=== PATIENT | female | born 1960 | race Caucasian/White ===

== ENCOUNTER 2023-12-08 14:07 | Emergency (ER) | payer OTHER, SELFPAY ==
--- OUTSIDE RECORDS SUMMARY | 2023-12-08 14:10 | XMS REPORT | Continuity of Care Document ---
Author Name Unknown Address [address] [place] [address] [employer] Address [address] [place] [address] [address] [place] [address] Care Team Providers Care Focuser Name Role Phone GABRIEL BURCH Attending Clinician Unavaila ble Results Test Description Test Time Test Comments Results Resul t Comments Source CT ABDOMEN/PELVIS W 2017-08-21 17:42:00 [place] [id number] Patient Name: NEHEMIAS COLVIN MR #: [id number] : 1960 Age/Sex: 56/F Req #: [id number] Adm Physician: Ordered by: GABRIEL BURCH Report #: [id number] Location: CT Room/Bed: Procedure: [id number] CT/CT ABDOMEN/PELVIS W Exam Date: 08/21/17 Exam Time: 1640 REPORT STATUS: Signed PROCEDURE: CT ABDOMEN AND PELVIS WITH CONTRAST TECHNIQUE: The abdomen and pelvis were scanned utilizing a multidetector helical scanner from the diaphragm to the lesser trochanter after the IV administration of 100 cc of Isovue 370 and the oral administration of water. Coronal and sagittal multiplanar reformations were obtained. COMPARISON: None. INDICATIONS: DIFFUSED ABDOMINAL PAIN FINDINGS: LOWER THORAX: Lung bases are grossly clear. HEPATOBILIARY: Hepatic steatosis, predominantly involving the right hepatic lobe. No focal lesions. Normal size and contour. No biliary ductal dilation. 1.7 cm peripherally calcified gallstone in the gallbladder lumen. No wall thickening or pericholecystic fluid. SPLEEN: No splenomegaly. PANCREAS: No focal masses or ductal dilatation. 3.0 x 1.7 cm oval-shaped structure with air-fluid level between the proximal third portion of the duodenum and the pancreatic head, consistent with a duodenal diverticulum (series 2, image 37).. ADRENALS: No adrenal nodules. KIDNEYS/URETERS: No hydronephrosis, stones, or solid mass lesions. PELVIC ORGANS/BLADDER: Bladder and uterus are unremarkable. 3.3 x 3.4 cm fluid density lesion in the right ovary, likely representing a small simple cyst. PERITONEUM / RETROPERITONEUM: No free air or fluid LYMPH NODES: No lymphadenopathy. VESSELS: Celiac trunk, superior and inferior mesenteric, and bilateral renal arteries are patent. Portal, superior mesenteric, and splenic veins are patent. Incidental note is made of a left circumaortic renal vein. Atherosclerotic calcification of the distal abdominal aorta and proximal iliac vessels. GI TRACT: No bowel dilation or evidence of obstruction. No pericolonic inflammatory changes. BONES AND SOFT TISSUES: No aggressive lytic lesions. Degenerative disc changes in the lumbosacral spine, predominantly at L2-L3, L4-L5, and L5-S1. Minimal grade 1 anterolisthesis of L5 on S1. Facet hypertrophy. L4-L5 and L5-S1. Soft tissues are grossly unremarkable. IMPRESSION: 1. No acute abdominopelvic abnormalities. Bowel is unremarkable. 2. Hepatic steatosis, dominantly involving the right hepatic lobe. 3. Cholelithiasis, without CT evidence of cholecystitis. 4. 3.4 cm fluid density lesion in the right ovary, likely representing a small simple cyst. Oskar Field M.D. Dictated by: Oskar Field M.D. on 08/21/2017 at 17:42 Electronically approved by: Oskar Field M.D. on 08/21/2017 at 17:42 Dictated By: OSKAR FIELD MD 41 Transcribed By: VERNELL on 08/21/171741 COPY TO: GABRIEL BURCH
[2023-12-08 15:28] LABS: Calcium Oxalate Crystals- Ur Few /HPF (None Seen); Sqamous Epithelial <5 /HPF (None Seen); Urine Bacteria None Seen /HPF (<20); Urine Bilirubin NEGATIVE (Negative); Urine Blood 3+ (OVER) (Negative); Urine Clarity Extremely Turbid (Clear); Urine Color Yellow (Yellow); Urine Culture Reflex Order NOT NEEDED; Urine Glucose NEGATIVE (Negative); Urine Ketones TRACE (Negative); Urine Microscopic Reflex YN ORDER UMIC; Urine Nitrite NEGATIVE (Negative); Urine Protein 1+ (Negative); Urine RBC >50 /HPF (None Seen); Urine Urobilinogen Normal (Normal)
--- NOTE | 2023-12-08 16:03 | RAD REPORT ---
EXAMINATION: Transvaginal Study Probe CLINICAL INDICATION: Female 63 years old.[facility] 17 years ago VAGINAL BLEEDING Bed Name: 8 TECHNIQUE: Real-time ultrasonography of the pelvis was performed transvaginally. Color and spectral D oppler evaluation of the ovaries was performed. COMPARISON: No prior exam. FINDINGS: UTERUS AND CERVIX: The uterus measures 8.8 cm in length. The uterus shows bulky appearance at the fun dus. Ill-defined areas of heterogeneous hypoechogenicity near the fundus, with some peripheral mineralization/ossifications, largest measuring up to 3 cm. The endometrium is poorly defined but sanna ears thickened. Small nabothian cyst at the cervix RIGHT OVARY: Normal The right ovary measures 1.7 x 2.3 x 2.1 cm. Dominant anechoic cyst/follicle occu pying most of the right ovary. Normal color and spectral Doppler evaluation of the right ovary.. LEFT OVARY: Normal The left ovary measures 2.2 x 1.2 x 1.7 cm. Normal color and spectral Doppler evaluation of the left ovary.. FREE FLUID: No free fluid. IMPRESSION: Bulky appearance at the fundus with heterogeneous fundal masses, may represent fibroids, or be relate d to an irregular endometrial mass, as the endometrium is poorly defined. Additional evaluation by contrast-enhanced MRI of the pelvis would be helpful for further characterization. Simple appearing cyst of the right ovary measuring up to 2.3 cm.
--- NOTE | 2023-12-08 16:11 | EDPHYS ---
Physician Documentation [facility] Name: Leanna Wilkinson Age: 63 yrs Sex: Female : 1960 Arrival Date: 12/08/2023 Time: 14:07 Bed 20 Private MD: ED Physician Suhas Love HPI: 12/07 14:15 This 63 yrs old Female presents to ER via Unassigned with complaints of Vaginal kb Bleeding. 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 States she has had 4-5 episodes of spotting since July, but today the bleeding was heavier with clots. States she went through Menopause at age 46 and hasn't had vaginal bleeding since then until July. Denies pain. Historical: - Allergies: 14:22 Codeine; hb - Immunization history:: Adult Immunizations up to date. - Infectious Disease History:: Denies. - Social history:: Smoking status: Patient denies any tobacco usage or history of. ROS: 14:15 Constitutional: As per HPI kb Exam: 14:15 Constitutional: This is a well developed, well nourished patient who is awake, alert, kb and in no acute distress. Head/Face: Normocephalic, atraumatic. ENT: Moist Mucous membranes Cardiovascular: Regular rate Respiratory: Respirations even and unlabored. No increased work of breathing. Talking in full sentences Abdomen/GI: Soft, non-tender. No distention Skin: Warm, dry with normal turgor. Normal color. MS/ Extremity: Pulses equal, no cyanosis. Neurovascular intact. Full, normal range of motion. Neuro: Awake and alert, GCS 15, oriented to person, place, time, and situation. Moves all extremities. Normal gait. Vital Signs: 14:21 BP 189 / 95; Pulse 88; Resp 16; Temp 97.4(TE); Pulse Ox 100% on R/A; Pain 0/10; hb 15:36 BP 139 / 78; Pulse 85; Pulse Ox 95% on R/A; MAP 95 mmHg; Pain 1/10; tm6 14:21 Pain Scale: Adult hb 15:36 Pain Scale: Adult tm6 MDM: 14:14 Patient medically screened. kb 14:18 Data reviewed: vital signs, nurses notes. kb 14:20 Differential diagnosis: malignancy, uterine fibroids. kb 16:09 Counseling: I had a detailed discussion with the patient and/or guardian regarding the kb historical points, exam findings, and any diagnostic results supporting the discharge/admit diagnosis, lab results, radiology results, the need for outpatient follow up, an OB/Gyne specialist, to return to the emergency department if symptoms worsen or persist or if there are any questions or concerns that arise at home. ED course: Pt educated on importance of follow up with [employer] for endometrial biopsy due to post menopausal bleeding. Verbal understanding received. Printed US report given. . 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 12/07 14:18 Order name: Urinalysis w/ reflexes; Complete Time: 15:29 kb 12/07 14:18 Order name: US Transvaginal Study (Probe); Complete Time: 16:06 kb Administered Medications: No medications were administered Disposition: 14:28 Co-signature as Attending Physician, Suhas Love DO I was immediately available on-site ms3 in the Emergency Department for consultation in the care of the patient. Disposition Summary: 12/08/23 16:10 Discharge Ordered Notes: Location: Home kb Condition: Stable kb Diagnosis - Abnormal uterine and vaginal bleeding, unspecified kb Followup: kb - With: Emergency Department - When: As needed - Reason: Worsening of condition Followup: kb - With: Private Physician - When: 2 - 3 days - Reason: Recheck today's complaints, Continuance of care, Re-evaluation by your physician Discharge Instructions: - Discharge Summary Sheet kb - Abnormal Uterine Bleeding, [id number] kb Forms: - Medication Reconciliation Form kb - Antibiotic Education kb - Prescription Opioid Use kb - Patient Portal Instructions kb - Leadership Thank You Letter kb Signatures: Dispatcher [employer] Yahaira Mercado, OLIVERIO PETTY-Giovanna Mayberry, RN RN Shuas Alston DO DO ms3 Corrections: (The following items were deleted from the chart) 14:18 14:18 Transvaginal Study (Probe)+[email or web address] ordered. EDMS EDMS
--- NOTE | 2023-12-08 16:11 | ER ---
Nurse's Notes [facility] Name: Leanna Wilkinson Age: 63 yrs Sex: Female : 1960 Arrival Date: 12/08/2023 Time: 14:07 Bed 20 Private MD: Diagnosis: Abnormal uterine and vaginal bleeding, unspecified Presentation: 12/07 14:21 Chief complaint: Vaginal bleeding with clots x 45 mins. Coronavirus screen: At this hb time, the client does not indicate any symptoms associated with coronavirus-19. Ebola Screen: No symptoms or risks identified at this time. Initial Sepsis Screen: Does the patient meet any 2 criteria? No. Patient's initial sepsis screen is negative. Does the patient have a suspected source of infection? No. Patient's initial sepsis screen is negative. Risk Assessment: Do you want to hurt yourself or someone else? Patient reports no desire to harm self or others. Onset of symptoms was December 08, 2023. 14:21 Method Of Arrival: Ambulatory hb 14:21 Acuity: JAYE 3 hb Historical: - Allergies: 14:22 Codeine; hb - Immunization history:: Adult Immunizations up to date. - Infectious Disease History:: Denies. - Social history:: Smoking status: Patient denies any tobacco usage or history of. Screenin:34 [facility] ED Fall Risk Assessment (Adult) History of falling in the last 3 months, tm6 including since admission No falls in past 3 months (0 pts) Confusion or Disorientation No (0 pts) Intoxicated or Sedated No (0 pts) Impaired Gait No (0 pts) Mobility Assist Device Used No (0 pt) Altered Elimination No (0 pt) Score/Fall Risk Level 0 - 2 = Low Risk Oriented to surroundings, Maintained a safe environment, Educated pt \\T\\ family on fall prevention, incl call for assistance when getting out of bed. Abuse screen: Denies threats or abuse. Denies injuries from another. Nutritional screening: No deficits noted. Tuberculosis screening: No symptoms or risk factors identified. Assessment: 15:34 General: Appears in no apparent distress. Behavior is calm, cooperative. Pain: tm6 Complains of pain in pelvis Pain currently is 1 out of 10 on a pain scale. Quality of pain is described as "discomfort". Neuro: Level of Consciousness is awake, alert, obeys commands, Oriented to person, place, time, situation. Cardiovascular: Patient's skin is warm and dry. Respiratory: Airway is patent Respiratory effort is even, unlabored, Respiratory pattern is regular, symmetrical. GI: No signs and/or symptoms were reported involving the gastrointestinal system. Abdomen is flat, non-distended. : Reports vaginal bleeding that is with clots. EENT: No signs and/or symptoms were reported regarding the EENT system. Derm: No signs and/or symptoms reported regarding the dermatologic system. Musculoskeletal: No signs and/or symptoms reported regarding the musculoskeletal system. 16:52 Reassessment: patient left prior to receiving discharge paperwork. Unable to obtain tm6 discharge vitals. Vital Signs: 14:21 BP 189 / 95; Pulse 88; Resp 16; Temp 97.4(TE); Pulse Ox 100% on R/A; Pain 0/10; hb 15:36 BP 139 / 78; Pulse 85; Pulse Ox 95% on R/A; MAP 95 mmHg; Pain 1/10; tm6 14:21 Pain Scale: Adult hb 15:36 Pain Scale: Adult tm6 ED Course: 14:12 Patient arrived in ED. im 14:14 Yahaira Caceres FNP-C is PHCP. kb 14:14 Suhas Love DO is Attending Physician. kb 14:22 Triage completed. hb 14:22 Arm band placed on. hb 14:32 Josselyn Grant, RN is Primary Nurse. db 14:40 Patient taken to ultrasound. via wheelchair. db 15:30 US Transvaginal Study (Probe) In Process Unspecified. EDMS 15:34 Patient has correct armband on for positive identification. Placed in gown. Bed in low tm6 position. Call light in reach. Side rails up X 1. Provided Education on: use of call alarcon; wait times. Client placed on continuous cardiac and pulse oximetry monitoring. NIBP monitoring applied. Pulse ox on. NIBP on. Door closed. Noise minimized. Lights dimmed. Warm blanket given. Pillow given. 16:53 No provider procedures requiring assistance completed. Patient did not have IV access tm6 during this emergency room visit. Administered Medications: No medications were administered Medication: 15:34 VIS not applicable for this client. tm6 Outcome: 16:10 Discharge ordered by . kb 16:53 Discharged to home ambulatory, with family, tm6 16:53 Condition: stable 16:53 Instructed on patient left prior to receiving discharge paperwork 16:54 Patient left the ED. tm6 Signatures: Dispatcher [employer] Yahaira Mercado FNP-C FNP-Giovanna Mayberry, RN RN Josselyn Emery, RN Iris Vu Tawney, RN RN tm6
[2023-12-08 16:59] VITALS: TEMP 97.4
[2023-12-08 17:01] VITALS: BP 139/78; O2SAT 95
== END 2023-12-08 16:54 | disposition home or self-care (01) ==
LOC: ER 14:07
DX: N93.9 Abnormal uterine and vaginal bleeding, unspecified (principal)
CPT/HCPCS: 76830; 81001; 99284